=== PATIENT | male | born 1990 | race Caucasian/White ===

== ENCOUNTER 2020-09-22 17:26 | Emergency (ER) | payer MEDICAID, SELFPAY ==
[2020-09-22 17:43] VITALS: BP 135/85; PULSE 118; RESP 20; TEMP 37.8; O2SAT 99
--- NOTE | 2020-09-22 17:59 | ED.GENADULT ---
HPI - General Adult General Chief complaint: Upper Respiratory Infection Stated complaint: sore throat/cough Time Seen by Provider: 09/22/20 17:41 Source: patient and RN notes reviewed Mode of arrival: ambulatory Limitations: no limitations History of Present Illness HPI narrative: Patient presents today with a 2-day history of congestion, sore throat, dry cough, fever up to 101. Denies shortness of breath, rhinorrhea, headache, body aches, nausea, vomiting, diarrhea, loss of taste or smell. Denies any known sick contacts. No recent testing for COVID-19. No history of asthma or COPD. Currently rates pain 4/10 and pain increases with swallowing. He has been taking ibuprofen which does help with his fever. Smokes 0.5 packs/day. MD complaint: Sore throat Related Data Home Medications Medication Instructions Recorded Confirmed Cymbalta 09/22/20 09/22/20 lamotrigine [Lamictal] 100 mg PO DAILY 09/22/20 09/22/20 ziprasidone HCl [Geodon] 60 mg PO BID 09/22/20 09/22/20 Allergies Allergy/AdvReac Type Severity Reaction Status Date / Time No Known Allergies Allergy Verified 09/22/20 17:41 Review of Systems Review of Systems: Narrative: CONSTITUTIONAL: Denies body aches, chills. + Fever, sweats EYES: Denies visual changes, redness, or discharge. ENT: Denies rhinorrhea, or otalgia.+ Congestion, sore throat CARDIOVASCULAR: Denies chest pain, palpitations, or edema. RESPIRATORY: Denies dyspnea. + Dry cough GASTROINTESTINAL: Denies abdominal pain, nausea, vomiting, or diarrhea. GENITOURINARY: Denies dysuria or hematuria. SKIN: Denies rash, itching, or wounds. MUSCULOSKELETAL: Denies back pain, joint pain, or myalgia. NEUROLOGIC: Denies headache, numbness, tingling, or weakness. PSYCH: Denies depression or anxiety. PMFSH Comments At time of signature, I have reviewed and agree with nursing past medical, surgical, social and family history unless otherwise noted. Please see nursing chart for further information. There is no relevant family history pertinent to the presenting complaint Exam Narrative: Exam Narrative: GENERAL: Mildly ill-appearing, well-nourished, and in no acute distress. Diaphoretic HEAD: Normocephalic, atraumatic. EYES: EOMI. No redness or drainage. Conjunctivae normal. ENT: Mucous membranes pink and moist. Nares clear. No rhinorrhea. TMs normal bilaterally. Throat erythematous and mildly edematous. Tonsils 2-3+ with copious white exudate. Uvula midline. NECK: Normal AROM. Supple. No lymphadenopathy. CHEST: No respiratory distress. Clear to auscultation. HEART: Regular rate and rhythm. No murmur appreciated. Normal peripheral pulses. EXTREMITIES: Normal range of motion. No edema. SKIN: Warm, no rash. Capillary refill normal. Normal skin turgor. NEURO: No focal deficits. Alert and oriented x3. Gait steady. PSYCH: Normal affect. No signs of depression or anxiety. Course Course Emergency Course: Due to recent exposure and symptoms, patient may have a possible COVID-19 infection. Signs and symptoms discussed with patient. Patient educated to self-isolate in a room in his/her home away from others they live with. Use mask if available. Patient was advised not to leave house for any reason ? Self-treatment discussed including Tylenol for fever, pain, or myalgia, and cough cold medications for symptoms. Patient to check temperature daily and monitor for symptoms of respiratory distress. Patient should check in daily with primary care office/system via phone/virtual platform ? Nature of the disease to cause severe respiratory distress discussed with the patient. If emergent care is needed, instructed to notify EMS or primary care office/system that he/she may have COVID-19 to allow for proper preparation of PPE and isolation measures Vital Signs Vital signs: Vital Signs Temperature 100.1 F H 09/22/20 17:43 Pulse Rate 118 H 09/22/20 17:43 Respiratory Rate 20 09/22/20 17:43 Blood
== END 2020-09-22 18:07 | disposition home or self-care (01) ==
PROVIDERS: Emergency Provider Nurse Practitioner
DX: J02.9 Acute pharyngitis, unspecified (principal); J06.9 Acute upper respiratory infection, unspecified; Z20.828 Contact with and (suspected) exposure to other viral communicable diseases; F17.200 Nicotine dependence, unspecified, uncomplicated; F32.9 Major depressive disorder, single episode, unspecified
CPT/HCPCS: 87081; 87880; 99203; G0463

== ENCOUNTER 2020-09-25 07:02 | Outpatient (NON) | payer MEDICAID, SELFPAY ==
[2020-09-26 20:00] LABS: SARS-CoV-2 RNA PCR Negative
== END 2020-09-25 07:03 ==
LOC: ANHCOVIDDT 07:10
PROVIDERS: Visit Provider Nurse Practitioner
DX: Z20.828 Contact with and (suspected) exposure to other viral communicable diseases (principal); J02.9 Acute pharyngitis, unspecified
CPT/HCPCS: 87635; C9803; U0003